=== PATIENT | female | born 1990 ===

== ENCOUNTER → 2018-05-22 | Outpatient (REF) | payer BC | LOC: M LAB LCGH 14:47 | PROVIDERS: ATTEND Surgery | DX: K80.10 Calculus of gallbladder with chronic cholecystitis without obstruction (principal) ==

== ENCOUNTER → 2018-06-13 | Outpatient (REF) | payer BC | LOC: M LAB LCGH 11:38 | PROVIDERS: ATTEND Physician Assistant | DX: Z12.4 Encounter for screening for malignant neoplasm of cervix (principal) ==